=== PATIENT | male | born 1985 | race African-American/Black ===

== ENCOUNTER 2016-05-11 09:31 | Emergency (ER) | payer SELFPAY ==
[~2016-05-11] VITALS: Ht 180.3 cm; Wt 88.5 kg
[~2016-05-11 09:31] MED LIST: ACETAMINOPHEN-1 EAC1 ORAL; ROBAXIN-750750 MG PO; TYLENOL EXTRA500 MG ORAL
[2016-05-11] MEDS ORDERED: NKM (09:44)
[2016-05-11] MEDS ORDERED: Morphine Sulfate 4mg/ml Inj IVP ONE (10:15)
[2016-05-11 10:19] LABS: BASOPHILS % (AUTO) 1.3 % (0.0-2.0); EOSINOPHILS % (AUTO) 3.2 % (0.0-3.0); MEAN CORPUSCULAR HEMOGLOBIN 26.6 PG (27.0-31.0); MEAN CORPUSCULAR HGB CONC 30.4 G/DL (32.0-36.0); MEAN CORPUSCULAR VOLUME 88 FL (80-99); MEAN PLATELET VOLUME 6.7 FL (6.5-10.1); MONOCYTES % (AUTO) 5.9 % (1.0-10.0); NEUTROPHILS % (AUTO) 61.6 % (45.0-75.0); PLATELET COUNT 301 K/UL (150-450); RED BLOOD COUNT 5.81 M/UL (4.70-6.10); RED CELL DISTRIBUTION WIDTH 12.9 % (11.6-14.8); WHITE BLOOD COUNT 7.4 K/UL (4.8-10.8)
[2016-05-11 10:21] VITALS: BP 122/73
[2016-05-11 10:23] LABS: APPEARANCE,URINE CLEAR; KETONES,URINE NEGATIVE (NEGATIVE); LEUKOCYTE ESTERASE ,URINE 1+ (NEGATIVE); NITRITE,URINE NEGATIVE (NEGATIVE); PH,URINE 7 (4.5-8.0); PROTEIN,URINE NEGATIVE (NEGATIVE); UROBILINOGEN,URINE 1 MG/DL (0.0-1.0)
[2016-05-11 10:33] LABS: ALANINE AMINOTRANSFERASE 20 U/L (3-41); ALBUMIN/GLOBULIN RATIO 1.4 (1.0-2.7); ANION GAP 17 (5-15); ASPARTATE AMINO TRANSFERASE 24 U/L (5-40); CALCIUM 9.1 mg/dL (8.6-10.2); CARBON DIOXIDE 23 mEQ/L (20-30); CHLORIDE 99 mEQ/L (98-107); CREATININE 1.1 mg/dL (0.7-1.2); GLOMERULAR FILTRATION RATE > 60 mL/min (>60); HEMOLYSIS 3; LIPASE 62 U/L (< 60); POTASSIUM 4.4 mEQ/L (3.4-4.9); SODIUM 139 mEQ/L (135-145); TOTAL PROTEIN 7.8 g/dL (6.6-8.7)
[2016-05-11 10:40] LABS: BACTERIA,URINE FEW /HPF; SQUAMOUS EPITHELIAL CELL,UR OCCASIONAL /LPF (NONE/OCC); WBC,URINE 0-2 /HPF (0 - 0)
[2016-05-11 11:32] VITALS: BP 127/91
[2016-05-11 12:16] VITALS: BP 127/91
--- NOTE | 2016-05-11 12:29 | Emergency Room Report ---
History of Present Illness General Chief Complaint: Abdominal Pain Source: Patient Present Illness HPI 31-year-old male presents ED complaining of abdominal pain. States symptoms started yesterday after eating some fast food. Patient notes pain and right upper quadrant and right lower quadrant, sharp, 8/10, nonradiating. With nausea and vomiting. Some diarrhea. Denies any fevers chills. Denies chest pain shortness of breath. No other aggravating relieving factors. Denies any other associated symptoms Allergies: Coded Allergies: IBUPROFEN (Verified Allergy, Unknown, 12/02/13) SWOLLEN LIPS Patient History Past Medical History: none Past Surgical History: none Pertinent Family History: none Social History: Denies: alcohol use, drug use, smoking Immunizations: UTD Reviewed Nursing Documentation: PMH: Agreed, PSxH: Agreed Nursing Documentation-PMH Past Medical History: No Stated History Review of Systems All Other Systems: negative except mentioned in HPI Physical Exam Vital Signs Date Time Temp Pulse Resp B/P Pulse Ox O2 Delivery O2 Flow Rate FiO2 05/11/16 09:40 98.2 70 18 128/80 98 Room Air Sp02 EP Interpretation: reviewed, normal General Appearance: no apparent distress, alert, GCS 15, non-toxic Head: normocephalic Eyes: bilateral eye PERRL, bilateral eye normal inspection ENT: normal ENT inspection Neck: normal inspection Respiratory: normal inspection Cardiovascular #1: normal inspection Gastrointestinal: tenderness - RUQ and RLQ Rectal: deferred Genitourinary: no CVA tenderness Musculoskeletal: normal inspection Neurologic: alert, oriented x3, responsive, motor strength/tone normal, sensory intact, speech normal Psychiatric: normal inspection Skin: normal inspection Lymphatic: normal inspection Medical Decision Making Diagnostic Impression: Primary Impression: Gastritis Qualified Codes: K29.00 - Acute gastritis without bleeding ER Course Hospital Course 31-year-old M presents to ED with RUQ pain and RLQ pain Differential diagnosis includes-appendicitis, cholecystitis, small bowel obstruction, gastritis, Clinical course Patient placed on stretcher. After initial history and physical I ordered labs , IV fluids, pain medications and CT scan Labs - no leukocytosis, electrolytes ok, LFTs normal, UA unremarkable CT scan shows no acute pathology Upon reassessment, patient states pain has improved. Given improvement in symptoms and lack of acute findings, I believe patient can be safely discharged to home. Patient agrees with plan I feel this is a highly complex case requiring extensive working including EKG/ Rhythm strip, Xray/CT/US, Blood/urine lab work, repeat exams while in ED, and administration of strong opiates/narcotics for pain control, admission to hospital or close patient follow up. Diagnosis -gastritis Stable and discharged to home with Rx Zofran, Zantac. Followup with PMD. Return to ED if symptoms recur or worsen Labs Test 05/11/16 10:02 White Blood Count 7.4 K/UL (4.8-10.8) Red Blood Count 5.81 M/UL (4.70-6.10) Hemoglobin 15.5 G/DL (14.2-18.0) Hematocrit 50.9 % (42.0-52.0) Mean Corpuscular Volume 88 FL (80-99) Mean Corpuscular Hemoglobin 26.6 PG (27.0-31.0) Mean Corpuscular Hemoglobin Concent 30.4 G/DL (32.0-36.0) Red Cell Distribution Width 12.9 % (11.6-14.8) Platelet Count 301 K/UL (150-450) Mean Platelet Volume 6.7 FL (6.5-10.1) Neutrophils (%) (Auto) 61.6 % (45.0-75.0) Lymphocytes (%) (Auto) 28.0 % (20.0-45.0) Monocytes (%) (Auto) 5.9 % (1.0-10.0) Eosinophils (%) (Auto) 3.2 % (0.0-3.0) Basophils (%) (Auto) 1.3 % (0.0-2.0) Urine Color Pale yellow Urine Appearance Clear Urine pH 7 (4.5-8.0) Urine Specific [place] 1.010 (1.005-1.035) Urine Protein Negative (NEGATIVE) Urine Glucose (UA) Negative (NEGATIVE) Urine Ketones Negative (NEGATIVE) Urine Occult Blood 1+ (NEGATIVE) Urine Nitrite Negative (NEGATIVE) Urine Bilirubin Negative (NEGATIVE) Urine Urobilinogen 1 MG/DL (0.0-1.0) Urine Leukocyte Esterase 1+ (NEGATIVE) Urine RBC 2-4 /HPF (0 - 0) Urine WBC 0-2 /HPF (0 - 0) Urine Squamous Epithelial Cells Occasional /LPF Urine Bacteria Few /HPF (NONE) Sodium Level 139 mEQ/L (135-145) Potassium Level 4.4 mEQ/L (3.4-4.9) Chloride Level 99 mEQ/L (98-107) Carbon Dioxide Level 23 mEQ/L (20-30) Anion Gap 17 (5-15) Blood Urea Nitrogen 15 mg/dL (7-23) Creatinine 1.1 mg/dL (0.7-1.2) Estimat Glomerular Filtration Rate > 60 mL/min (>60) Glucose Level 119 mg/dL (74-106) Calcium Level 9.1 mg/dL (8.6-10.2) Total Bilirubin 0.4 mg/dL (0.0-1.2) Aspartate Amino Transf (AST/SGOT) 24 U/L (5-40) Alanine Aminotransferase (ALT/SGPT) 20 U/L (3-41) Alkaline Phosphatase 61 U/L (40-129) Total Protein 7.8 g/dL (6.6-8.7) Albumin 4.6 g/dL (3.5-5.2) Globulin 3.2 g/dL Albumin/Globulin Ratio 1.4 (1.0-2.7) Lipase 62 U/L (< 60) CT/MRI/US Diagnostic Results CT/MRI/US Diagnostic Results : Imaging Test Ordered: CT A/p Impression no acute process Last Vital Signs Date Time Temp Pulse Resp B/P Pulse Ox O2 Delivery O2 Flow Rate FiO2 05/11/16 12:16 67 15 127/91 99 Room Air 05/11/16 10:43 98.3 Status: improved Disposition: HOME, SELF-CARE Condition: Stable Scripts Ranitidine Hcl* (ZANTAC*) 150 Mg Tablet 150 MG ORAL TWICE A DAY, #30 TAB Prov: MAN HERNÁNDEZ M.D. 05/11/16 Ondansetron Odt* (ZOFRAN ODT*) 4 Mg Tab.rapdis 4 MG ORAL Q6H Y for Nausea & Vomiting, #30 TAB 0 Refills Prov: MAN HERNÁNDEZ M.D. 05/11/16 Referrals: NOT CHOSEN JAMEL/,REFERRING (PCP) MAN HERNÁNDEZ M.D. May 11, 2016 12:29
[2016-05-11 13:19] VITALS: BP 137/96
--- NOTE | 2016-05-11 13:39 | Diagnostic Imaging Report ---
Clinical Indication: Medial abdominal pain radiating to right side of pelvis since Monday, nausea and vomiting beginning this a.m. at 0200 Technique: Patient given oral contrast. IV administration nonionic contrast. Venous phase spiral acquisition obtained through the abdomen and pelvis. Multiplanar reconstructions were generated. Total dose length product 940 mGycm. CTDIvol(s) 17 mGy Comparison: None Findings: The appendix is normal. There is no evidence of diverticulosis or diverticulitis. No small bowel distention or small bowel wall thickening. The distal esophagus, stomach, duodenum are unremarkable. No free or loculated intraperitoneal air or fluid is demonstrated. The liver, gallbladder, bile ducts, pancreas, spleen, adrenals, kidneys are unremarkable. There are a few accessory splenules. No retroperitoneal or mesenteric mass or adenopathy. No pelvic mass or adenopathy. The included lung bases demonstrate some dependent atelectatic changes, are otherwise unremarkable. The bones are unremarkable. There is posterior paracentral disc protrusion at L5-S1 which does not appear to cause any significant spinal stenosis. There is incidental finding of a small fat-containing umbilical hernia Impression: No acute process or findings to explain stated clinical history of abdominal pain, nausea, and vomiting Incidental finding of lumbar disc disease L5-S1 Minimal basilar pulmonary atelectasis Small fat-containing abdominal hernia The CT scanner at [facility] is accredited by the [employer] and the scans are performed using protocols designed to limit radiation exposure to as low as reasonably achievable to attain images of sufficient resolution adequate for diagnostic evaluation.
[2016-05-11] MEDS ORDERED: ZOFRAN ODT4 MG ORAL (13:49)
[2016-05-11] MEDS ORDERED: RANITIDINE HCL150 MG ORAL (13:49)
[2016-05-11 13:55] VITALS: BP 126/87
[2016-05-12] MEDS ORDERED: REGLAN10 MG ORAL (21:38)
[2016-05-12] MEDS ORDERED: BENTYL10 MG ORAL (21:38)
== END 2016-05-11 13:55 | disposition home or self-care (01) ==
LOC: EMR 10:18
DX: K29.70 Gastritis, unspecified, without bleeding (principal); K46.9 Unspecified abdominal hernia without obstruction or gangrene; Z88.6 Allergy status to analgesic agent
CPT/HCPCS: 36415; 74177; 80053; 81003; 83690; 85025; 96374; 96375; 99284; J2270; J2405; Q9967

== ENCOUNTER 2016-05-12 17:30 | Emergency (ER) | payer SELFPAY ==
[~2016-05-12] VITALS: Ht 180.3 cm; Wt 88.5 kg
[~2016-05-12 17:30] MED LIST changes: +NKM; +RANITIDINE HCL150 MG ORAL; +ZOFRAN ODT4 MG ORAL
[2016-05-12 17:46] VITALS: BP 162/100
[2016-05-12] MEDS ORDERED: Mylanta II UD 30ml ORAL ONE (18:00)
[2016-05-12] MEDS ORDERED: Dicyclomine HCl 10mg/5ml oral soln ORAL ONE (18:00)
[2016-05-12] MEDS ORDERED: Lidocaine 2% Visc 15ml soln ORAL ONE (18:00)
[2016-05-12] MEDS ORDERED: Metoclopramide 10mg/2ml Inj IM ONE (18:15)
--- NOTE | 2016-05-12 18:32 | Emergency Room Report ---
History of Present Illness General Chief Complaint: Abdominal Pain Source: Patient Present Illness HPI 31-year-old male presents emergency department complaining of nausea, vomiting, chills and new onset diarrhea. Patient was seen here in the emergency department yesterday and was diagnosed with gastritis. Patient states since discharge of the ER he has not developed diarrhea. Patient denies blood in the vomit or stool. Patient denies dark tarry stools. Patient states that the medication he was discharged with is not helping. Patient was discharged with Zofran and Zantac. Denies CP, Palpitations, LOC, AMS, dizziness, Changes in Vision, Sensation, paresthesias, or a sudden severe headache. Allergies: Coded Allergies: IBUPROFEN (Verified Allergy, Unknown, 12/02/13) SWOLLEN LIPS Patient History Past Medical History: see triage record Past Surgical History: none Pertinent Family History: none Immunizations: UTD Reviewed Nursing Documentation: PMH: Agreed, PSxH: Agreed Review of Systems All Other Systems: negative except mentioned in HPI Physical Exam Vital Signs Date Time Temp Pulse Resp B/P Pulse Ox O2 Delivery O2 Flow Rate FiO2 05/12/16 17:35 97.5 72 22 162/100 100 Room Air Sp02 EP Interpretation: reviewed, abnormal - BP is initially elevated. General Appearance: no apparent distress, alert, GCS 15, non-toxic, mild distress - pt. is vomiting and spitting up multiple times durring initial PE. Head: normocephalic, atraumatic Eyes: bilateral eye PERRL, bilateral eye normal inspection ENT: hearing grossly normal, normal pharynx, no angioedema, normal voice Neck: full range of motion, supple/symm/no masses Respiratory: chest non-tender, lungs clear, normal breath sounds, speaking full sentences Cardiovascular #1: regular rate, rhythm, no edema Gastrointestinal: non tender, soft, no mass, no bruit, non-distended, no guarding, no rebound, other - hyperactive bs in all 4 quadrants, TTP is generalized mainly in epigastric area, but in all 4 quadrants to deep palpation , no appreciable TTP in macburny's point, abdomen is soft. Rectal: deferred Genitourinary: normal inspection, no CVA tenderness Musculoskeletal: back normal, gait/station normal, normal range of motion, non- tender, no calf tenderness Neurologic: alert, oriented x3, responsive, motor strength/tone normal, sensory intact, speech normal Psychiatric: judgement/insight normal, memory normal, mood/affect normal, no suicidal/homicidal ideation Skin: normal color, no rash, warm/dry, well hydrated, other - no skin signs to suggest significant dehydration, no rashes or bruises noted. Lymphatic: no adenopathy Medical Decision Making PA Attestation Dr. Moran is my supervising Physician whom patient management has been discussed with. Diagnostic Impression: Primary Impression: Gastroenteritis Additional Impression: Combined abdominal pain, vomiting, and diarrhea ER Course Pt. presents to the ED c/oN/V/D x 1 with 10/10 generalized abdominal pain. Ddx considered but are not limited to GE, colitis, acute appy, SBO, ----Reviewed chart from yesterday's visit here in emergency department patient had a normal CT of the abdomen pelvis and his laboratory workup was within normal limits. Vital signs: pt. is afebrile, BP is initially mildly elevated, prior to d/c BP has normalized., non-tachycardic, non-tachypneic. H&PE are most consistent with GE ORDERS: -CBC: unremarkable -CMP: no evidence of electrolyte abnormality, good renal function -lipase: WNL -- ED INTERVENTIONS: -GI cocktail -150mg Zantac -1000cc NS Bolus -4mg Morphine IV -10mg IM Reglan -4mg Zofran IVP : for nausea prior to d/c as pt. states he wont be able to fill his rx's until tomorrow. -Pt. is observed to be resting comfortable in the ED bed sleeping. he is also able to tolerate oral fluids. I believe this pt. is stable for close outpatient follow up. d/w pt. symptoms that would indicate prompt return to the ED, otherwise he should follow up with his PCP> DISCHARGE: At this time pt. is stable for d/c to home. Will provide printed patient care instructions, and any necessary prescriptions. Care plan and follow up instructions have been discussed with the patient prior to discharge. Labs Test 05/12/16 19:10 05/12/16 20:18 White Blood Count 10.4 K/UL (4.8-10.8) Red Blood Count 6.06 M/UL (4.70-6.10) Hemoglobin 16.8 G/DL (14.2-18.0) Hematocrit 52.8 % (42.0-52.0) Mean Corpuscular Volume 87 FL (80-99) Mean Corpuscular Hemoglobin 27.7 PG (27.0-31.0) Mean Corpuscular Hemoglobin Concent 31.8 G/DL (32.0-36.0) Red Cell Distribution Width 13.2 % (11.6-14.8) Platelet Count 286 K/UL (150-450) Mean Platelet Volume 6.7 FL (6.5-10.1) Neutrophils (%) (Auto) 75.9 % (45.0-75.0) Lymphocytes (%) (Auto) 18.6 % (20.0-45.0) Monocytes (%) (Auto) 3.5 % (1.0-10.0) Eosinophils (%) (Auto) 0.7 % (0.0-3.0) Basophils (%) (Auto) 1.3 % (0.0-2.0) Sodium Level 138 mEQ/L (135-145) Potassium Level 4.6 mEQ/L (3.4-4.9) Chloride Level 99 mEQ/L (98-107) Carbon Dioxide Level 21 mEQ/L (20-30) Anion Gap 18 (5-15) Blood Urea Nitrogen 8 mg/dL (7-23) Creatinine 1.1 mg/dL (0.7-1.2) Estimat Glomerular Filtration Rate > 60 mL/min (>60) Glucose Level 126 mg/dL (74-106) Calcium Level 9.2 mg/dL (8.6-10.2) Total Bilirubin 0.3 mg/dL (0.0-1.2) Aspartate Amino Transf (AST/SGOT) 25 U/L (5-40) Alanine Aminotransferase (ALT/SGPT) 20 U/L (3-41) Alkaline Phosphatase 62 U/L (40-129) Total Protein 8.0 g/dL (6.6-8.7) Albumin 4.6 g/dL (3.5-5.2) Globulin 3.4 g/dL Albumin/Globulin Ratio 1.3 (1.0-2.7) Lipase 30 U/L (< 60) Last Vital Signs Date Time Temp Pulse Resp B/P Pulse Ox O2 Delivery O2 Flow Rate FiO2 1/26/17 17:46 97.5 75 22 162/100 100 Room Air Disposition: HOME, SELF-CARE Condition: Stable Scripts Dicyclomine Hcl* (BENTYL*) 10 Mg Capsule 10 MG ORAL FOUR TIMES A DAY for 3 Days, #9 CAP Prov: Kaylynn Ornelas 05/12/16 Metoclopramide Hcl* (REGLAN*) 10 Mg Tablet 10 MG ORAL THREE TIMES A DAY Y for Nausea & Vomiting for 7 Days, #21 TAB Prov: Kaylynn Ornelas 05/12/16 Patient Instructions: Viral Gastroenteritis, Adult Additional Instructions: Take medications as directed. Follow up with PCP in 3 days Return sooner to ED if new symptoms occur, or current symptoms become worse. Kaylynn Ornelas May 12, 2016 18:32
[2016-05-12 19:22] LABS: BASOPHILS % (AUTO) 1.3 % (0.0-2.0); EOSINOPHILS % (AUTO) 0.7 % (0.0-3.0); LYMPHOCYTES % (AUTO) 18.6 % (20.0-45.0); MEAN CORPUSCULAR HEMOGLOBIN 27.7 PG (27.0-31.0); MEAN CORPUSCULAR HGB CONC 31.8 G/DL (32.0-36.0); MEAN CORPUSCULAR VOLUME 87 FL (80-99); MEAN PLATELET VOLUME 6.7 FL (6.5-10.1); MONOCYTES % (AUTO) 3.5 % (1.0-10.0); NEUTROPHILS % (AUTO) 75.9 % (45.0-75.0); PLATELET COUNT 286 K/UL (150-450); RED BLOOD COUNT 6.06 M/UL (4.70-6.10); RED CELL DISTRIBUTION WIDTH 13.2 % (11.6-14.8); WHITE BLOOD COUNT 10.4 K/UL (4.8-10.8)
[2016-05-12] MEDS ORDERED: Morphine Sulfate 4mg/ml Inj IVP ONE (19:45)
[2016-05-12 20:51] LABS: ALANINE AMINOTRANSFERASE 20 U/L (3-41); ALBUMIN/GLOBULIN RATIO 1.3 (1.0-2.7); ANION GAP 18 (5-15); ASPARTATE AMINO TRANSFERASE 25 U/L (5-40); CALCIUM 9.2 mg/dL (8.6-10.2); CARBON DIOXIDE 21 mEQ/L (20-30); CHLORIDE 99 mEQ/L (98-107); CREATININE 1.1 mg/dL (0.7-1.2); GLOMERULAR FILTRATION RATE > 60 mL/min (>60); HEMOLYSIS 141; LIPASE 30 U/L (< 60); POTASSIUM 4.6 mEQ/L (3.4-4.9); SODIUM 138 mEQ/L (135-145)
[2016-05-12 21:30] VITALS: BP 140/89
[2016-05-12] MEDS ORDERED: REGLAN10 MG ORAL (21:38)
[2016-05-12] MEDS ORDERED: BENTYL10 MG ORAL (21:38)
[2016-05-12 21:50] VITALS: BP 140/89
== END 2016-05-12 21:50 | disposition home or self-care (01) ==
LOC: EMR 19:16
DX: K52.9 Noninfective gastroenteritis and colitis, unspecified (principal); Z88.6 Allergy status to analgesic agent
CPT/HCPCS: 36415; 80053; 83690; 85025; 96372; 96374; 96375; 99284; J2270; J2405; J2765